=== PATIENT | female | born 1950 | race Hispanic/Latino ===

== ENCOUNTER 2018-07-02 22:34 | Emergency (ER) | payer OTHER ==
[~2018-07-02] VITALS: Ht 157.5 cm; Wt 104.3 kg
--- OUTSIDE RECORDS SUMMARY | 2018-07-02 22:37 | XMS REPORT | Continuity of Care Document ---
Author Author [facility] Organization [facility] Address Unknown Phone Unavailable Care Team Providers Care House Wirer Helper Name Role Phone MD Keila, Maximo TRAN Unavailable Insurance Providers Payer name Policy type / Coverage type Policy ID Covered alliance party ID Policy [employer] [place] [id number] Quarterly [place] ACS - TMHP - TRADITIONAL Encounters Encounter Performer Location Date Lab Report Maximo Pedraza MD [facility] Jan 11, 2014 Allergies, Adverse Reactions, Alerts Type Substance Reaction Status Drug allergy CODEINE nausea Active Problems Problem Effective Dates Problem Status BODY MASS INDEX 50.0-59.9, ADULT Oct 06, 2013 Active DM W/RENAL MANIFEST, TYPE II Oct 06, 2013 Active BACK PAIN, CHRONIC Oct 06, 2013 Active HYPERTENSION Oct 06, 2013 Active HYPERLIPIDEMIA, MIXED Oct 06, 2013 Active DIARRHEA, CHRONIC Oct 06, 2013 Active MORBID OBESITY Oct 06, 2013 Active CHRONIC KIDNEY DISEASE, STAGE III (MODERATE) Oct 06, 2013 Active URINARY TRACT INFECTION, SITE NOT SPECIFIED Oct 06, 2013 Active Procedures Date Description Comments Oct 06, 2013 smoking status Former smoker Jan 11, 2014 smoking status Former smoker Medications Medication Instructions Start Date Status PRAVASTATIN SODIUM 10 MG TABS take 1 tablet by mouth at bedtime Oct 06, 2013 Active HYDROCHLOROTHIAZIDE 25 MG TABS take 1 tablet by mouth daily Oct 06, 2013 Active LOSARTAN POTASSIUM 100 MG TABS take 1 tablet by mouth daily Oct 06, 2013 Active ALL DAY ALLERGY 10 MG TABS take 1 tablet by mouth daily Oct 06, 2013 Active ATENOLOL 25 MG TABS take 1 tablet by mouth daily Oct 06, 2013 Active METHOCARBAMOL 500 MG TABS take 1 tablet by mouth three times daily Oct 06, 2013 Active FLUTICASONE PROPIONATE 50 MCG/ACT SUSP use 2 sprays each nostril daily Oct 06, 2013 Active CEPHALEXIN 500 MG CAPS take one tablet by mouth three times a day Oct 06, 2013 Inactive LANSOPRAZOLE 30 MG CPDR take one tablet by mouth daily Jan 11, 2014 Active HUMULIN 70/30 (70-30) 100 UNIT/ML SUSP inject 65 units under the skin in the morning and inject 65 units under the skin at bedtime Oct 06, 2013 Active BD INSULIN SYRINGE 28G X 1/2" 1 ML MISC use 2 times a day Jan 11, 2014 Active Vital Signs Date Description Test Result Oct 06, 2013 height E&M - 8302-2 HEIGHT 62 in Oct 06, 2013 respiratory rate E&M - 9279-1 RESP RATE 12 /min Oct 06, 2013 temperature E&M TEMPERATURE 98.9 deg f Oct 06, 2013 pulse rate E&M - 8867-4 PULSE RATE 62 /min Oct 06, 2013 blood pressure, systolic - 8480-6 BP SYSTOLIC 135 mm Hg Oct 06, 2013 blood pressure, diastolic - 8462-4 BP DIASTOLIC 63 mm Hg Oct 06, 2013 weight E&M - 3141-9 WEIGHT 297.2 lb Jan 11, 2014 height E&M - 8302-2 HEIGHT 62 in Jan 11, 2014 weight E&M - 3141-9 WEIGHT 299 lb Jan 11, 2014 respiratory rate E&M - 9279-1 RESP RATE 12 /min Jan 11, 2014 temperature E&M TEMPERATURE 97.6 deg f Jan 11, 2014 pulse rate E&M - 8867-4 PULSE RATE 62 /min Jan 11, 2014 blood pressure, systolic - 8480-6 BP SYSTOLIC 155 mm Hg Jan 11, 2014 blood pressure, diastolic - 8462-4 BP DIASTOLIC 70 mm Hg Results Date Description Test Name Value Reference Interpretation Status Jan 11, 2014 hemoglobin A1C, blood, as % of total hemoglobin HGBA1C 8.3 % <=5.6 High Jan 11, 2014 sodium, serum SODIUM 137 MEQ/L mmol/L 135-145 Jan 11, 2014 potassium, serum POTASSIUM 4.8 MEQ/L mmol/L 3.5-5.1 Jan 11, 2014 creatinine, serum CREATININE 1.2 mg/dL 0.5-1.4 Jan 11, 2014 urea nitrogen, blood BUN 26 mg/dL 7-22 High Jan 11, 2014 urea nitrogen/creatinine ratio, serum BUN/CREAT 22 null 6-25 Jan 11, 2014 albumin, serum ALBUMIN 3.6 g/dL 3.5-5.0 Jan 11, 2014 calcium, serum CALCIUM 9.4 mg/dL 8.5-10.5 Jan 11, 2014 alanine aminotransferase (SGPT), serum SGPT (ALT) 23 U/L 0-65 Jan 11, 2014 aspartate aminotransferase (SGOT), serum SGOT (AST) 14 U/L 0-37 Jan 11, 2014 alkaline phosphatase, serum ALK PHOS 56 U/L 39-136
--- OUTSIDE RECORDS SUMMARY | 2018-07-02 22:37 | XMS REPORT | Continuity of Care Document ---
Author Author [facility] Organization [facility] Address Unknown Phone Unavailable Care Team Providers Care News Reel Cameraman Name Role Phone MD Keila, Maximo TRAN Unavailable Insurance Providers Payer name Policy type / Coverage type Policy ID Covered republican ID Policy [employer] [place] [employer] [place] - TMHP - TRADITIONAL Encounters Encounter Performer Location Date Lab Report Maximo Pedraza MD [facility] Nov 12, 2013 Allergies, Adverse Reactions, Alerts Type Substance Reaction [...] Oct 06, 2013 smoking status Former smoker Medications Medication Instructions [...] each nostril daily Oct 06, 2013 Active HUMULIN 70/30 (70-30) 100 UNIT/ML SUSP inject 55 units under the skin in the morning and inject 60 units under the skin at bedtime Oct 06, 2013 Active CEPHALEXIN 500 MG CAPS take one tablet by mouth three times a day Oct 06, 2013 Active Vital Signs Date Description Test Result Oct 06, 2013 height E&M HEIGHT 62 in Oct 06, 2013 respiratory rate E&M RESP RATE 12 /min Oct 06, 2013 temperature E&M TEMPERATURE 98.9 deg f Oct 06, 2013 pulse rate E&M PULSE RATE 62 /min Oct 06, 2013 blood pressure, systolic BP SYSTOLIC 135 mm Hg Oct 06, 2013 blood pressure, diastolic BP DIASTOLIC 63 mm Hg Oct 06, 2013 weight E&M WEIGHT 297.2 lb
--- OUTSIDE RECORDS SUMMARY | 2018-07-02 22:37 | XMS REPORT | Continuity of Care Document ---
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 Active 03/30/2014 Condition 10/11/2014 [facility] LOWER LIMB AMPUTATION, OTHER TOE Active 03/30/2014 Condition 10/11/2014 [facility] PVD Active 03/30/2014 Condition 10/11/2014 [facility] BODY MASS INDEX 50.0-59.9, ADULT Active 10/06/2013 Condition 10/11/2014 [facility] DM W/RENAL MANIFEST, TYPE II Active 10/06/2013 Condition 10/11/2014 [facility] BACK PAIN, CHRONIC Active 10/06/2013 Condition 10/11/2014 [facility] HYPERTENSION Active 10/06/2013 Condition 10/11/2014 [facility] HYPERLIPIDEMIA, MIXED Active 10/06/2013 Condition 10/11/2014 [facility] DIARRHEA, CHRONIC Active 10/06/2013 Condition 10/11/2014 [facility] MORBID OBESITY Active 10/06/2013 Condition 10/11/2014 [facility] CHRONIC KIDNEY DISEASE, STAGE III Active 10/06/2013 Condition 03/30/2014 [facility] URINARY TRACT INFECTION, SITE NOT SPECIFIED Inactive 10/06/2013 Condition 10/11/2014 [facility] KIDNEY DISEASE, CHRONIC, STAGE III Active 10/06/2013 Condition 10/11/2014 [facility] Medications Medication Details Route Status Patient Instructions Ordering Provider Order Date Source FUROSEMIDE 20 MG TABS take 1 tablet by mouth daily Active 07/12/2014 [facility] OMEPRAZOLE 40 MG CPDR take 1 capsule by mouth daily 30 minutes before breakfast Active 07/12/2014 [facility] PROAIR HFA 108 (90 BASE) MCG/ACT AERS inhale 1 puff by mouth twice daily as needed Active 04/26/2014 [facility] AZITHROMYCIN 250 MG TABS take 2 tabs first day, then 1 tab daily No Longer Active 04/26/2014 [facility] LANSOPRAZOLE 30 MG CPDR take one tablet by mouth daily Active 01/11/2014 [facility] BD INSULIN SYRINGE 28G X 1/2" 1 ML MISC use 2 times a day Active 01/11/2014 [facility] BD INSULIN SYRINGE ULTRAFINE 31G X 5/16" 1 ML MISC use 2 times a day Active 01/11/2014 [facility] PRAVASTATIN SODIUM 10 MG TABS take 1 tablet by mouth at bedtime Active 10/06/2013 [facility] HYDROCHLOROTHIAZIDE 25 MG TABS take 1 tablet by mouth daily Active 10/06/2013 [facility] LOSARTAN POTASSIUM 100 MG TABS take 1 tablet by mouth daily Active 10/06/2013 [facility] ALL DAY ALLERGY 10 MG TABS take 1 tablet by mouth daily Active 10/06/2013 [facility] ATENOLOL 25 MG TABS take 1 tablet by mouth daily Active 10/06/2013 [facility] METHOCARBAMOL 500 MG TABS take 1 tablet by mouth three times daily Active 10/06/2013 [facility] FLUTICASONE PROPIONATE 50 MCG/ACT SUSP use 2 sprays each nostril daily Active 10/06/2013 [facility] HUMULIN 70/30 (70-30) 100 UNIT/ML SUSP inject 60 units under the skin in the morning and inject 60 units under the skin at bedtime Active 10/06/2013 [facility] CEPHALEXIN 500 MG CAPS take one tablet by mouth three times a day Active 10/06/2013 [facility] LOSARTAN POTASSIUM 100 MG TABS take 1 tablet by mouth daily Active 10/06/2013 [facility] METHOCARBAMOL 500 MG TABS take 1 tablet by mouth three times daily Active 10/06/2013 [facility] CEPHALEXIN 500 MG CAPS take one tablet by mouth three times a day No Longer Active 10/06/2013 [facility] HUMULIN 70/30 (70-30) 100 UNIT/ML SUSP inject 65 units under the skin in the morning and inject 65 units under the skin at bedtime Active 10/06/2013 [facility] ATENOLOL 25 MG TABS take 1 tablet by mouth daily Active 10/06/2013 [facility] METHOCARBAMOL 500 MG TABS take 1 tablet by mouth three times daily Active 10/06/2013 [facility] FLUTICASONE PROPIONATE 50 MCG/ACT SUSP use 2 sprays each nostril daily Active 10/06/2013 [facility] CEPHALEXIN 500 MG CAPS take one tablet by mouth three times a day No Longer Active 10/06/2013 [facility] ATENOLOL 25 MG TABS take 1 tablet by mouth daily Active 10/06/2013 [facility] Allergies, Adverse Reactions, Alerts Substance Category Reaction Severity Reaction type Status Date Reported Comments Source CODEINE Drug allergy CODEINE 10/06/2013 [facility] Immunizations Immunization Date Given Site Status Last Updated Comments Source Results Order Name Results Value Reference Range Date Interpretation Comments Source Chemistry HGBA1C 9.4 % - 5.6 07/12/2014 [facility] Chemistry TSH 1.680 uIU/mL 0.360 - 3.740 07/12/2014 [facility] CHOLESTEROL 163 mg/dl - 199 07/12/2014 [facility] TRIGLYCERIDE 187 mg/dl - 149 07/12/2014 [facility] Chemistry HDL 43 mg/dl >=61 07/12/2014 [facility] Chemistry LDL 83 mg/dl - 99 07/12/2014 [facility] Chemistry SODIUM 134 MEQ/L mmol/L 135 - 145 07/12/2014 [facility] Chemistry POTASSIUM 4.1 MEQ/L mmol/L 3.5 - 5.1 07/12/2014 [facility] Chemistry CREATININE 1.6 mg/dL 0.5 - 1.4 07/12/2014 [facility] Chemistry BUN 37 mg/dL 7 - 22 07/12/2014 [facility] Chemistry BUN/CREAT 23 6 - 25 07/12/2014 [facility] Chemistry ALBUMIN 3.5 g/dL 3.5 - 5.0 07/12/2014 [facility] Chemistry CALCIUM 9.5 mg/dL 8.5 - 10.5 07/12/2014 [facility] Chemistry SGPT (ALT) 25 U/L 0 - 65 07/12/2014 [facility] Chemistry SGOT (AST) 17 U/L 0 - 37 07/12/2014 [facility] Chemistry ALK PHOS 50 U/L 39 - 136 07/12/2014 [facility] Chemistry HGBA1C 8.8 % - 5.6 04/26/2014 [facility] Chemistry SODIUM 139 MEQ/L mmol/L 135 - 145 04/26/2014 [facility] Chemistry POTASSIUM 4.5 MEQ/L mmol/L 3.5 - 5.1 04/26/2014 [facility] Chemistry CREATININE 1.1 mg/dL 0.5 - 1.4 04/26/2014 [facility] Chemistry BUN 17 mg/dL 7 - 22 04/26/2014 [facility] Chemistry BUN/CREAT 15 6 - 25 04/26/2014 [facility] Chemistry ALBUMIN 3.7 g/dL 3.5 - 5.0 04/26/2014 [facility] Chemistry CALCIUM 9.1 mg/dL 8.5 - 10.5 04/26/2014 [facility] Chemistry SGPT (ALT) 22 U/L 0 - 65 04/26/2014 [facility] Chemistry SGOT (AST) 15 U/L 0 - 37 04/26/2014 [facility] Chemistry ALK PHOS 48 U/L 39 - 136 04/26/2014 [facility] Chemistry HGBA1C 8.8 % - 5.6 04/26/2014 [facility] Chemistry SODIUM 139 MEQ/L mmol/L 135 - 145 04/26/2014 [facility] Chemistry POTASSIUM 4.5 MEQ/L mmol/L 3.5 - 5.1 04/26/2014 [facility] Chemistry CREATININE 1.1 mg/dL 0.5 - 1.4 04/26/2014 [facility] Chemistry BUN 17 mg/dL 7 - 22 04/26/2014 [facility] Chemistry BUN/CREAT 15 6 - 25 04/26/2014 [facility] Chemistry ALBUMIN 3.7 g/dL 3.5 - 5.0 04/26/2014 [facility] Chemistry CALCIUM 9.1 mg/dL 8.5 - 10.5 04/26/2014 [facility] Chemistry SGPT (ALT) 22 U/L 0 - 65 04/26/2014 [facility] Chemistry SGOT (AST) 15 U/L 0 - 37 04/26/2014 [facility] Chemistry ALK PHOS 48 U/L 39 - 136 04/26/2014 [facility] Chemistry HGBA1C 8.3 % - 5.6 01/11/2014 [facility] Chemistry SODIUM 137 MEQ/L mmol/L 135 - 145 01/11/2014 [facility] Chemistry POTASSIUM 4.8 MEQ/L mmol/L 3.5 - 5.1 01/11/2014 [facility] Chemistry CREATININE 1.2 mg/dL 0.5 - 1.4 01/11/2014 [facility] Chemistry BUN 26 mg/dL 7 - 22 01/11/2014 [facility] Chemistry BUN/CREAT 22 6 - 25 01/11/2014 [facility] Chemistry ALBUMIN 3.6 g/dL 3.5 - 5.0 01/11/2014 [facility] Chemistry CALCIUM 9.4 mg/dL 8.5 - 10.5 01/11/2014 [facility] Chemistry SGPT (ALT) 23 U/L 0 - 65 01/11/2014 [facility] Chemistry SGOT (AST) 14 U/L 0 - 37 01/11/2014 [facility] Chemistry ALK PHOS 56 U/L 39 - 136 01/11/2014 [facility] Chemistry HGBA1C 8.3 % - 5.6 01/11/2014 [facility] Chemistry SODIUM 137 MEQ/L mmol/L 135 - 145 01/11/2014 [facility] Chemistry POTASSIUM 4.8 MEQ/L mmol/L 3.5 - 5.1 01/11/2014 [facility] Chemistry CREATININE 1.2 mg/dL 0.5 - 1.4 01/11/2014 [facility] Chemistry BUN 26 mg/dL 7 - 22 01/11/2014 [facility] Chemistry BUN/CREAT 22 6 - 25 01/11/2014 [facility] Chemistry ALBUMIN 3.6 g/dL 3.5 - 5.0 01/11/2014 [facility] Chemistry CALCIUM 9.4 mg/dL 8.5 - 10.5 01/11/2014 [facility] Chemistry SGPT (ALT) 23 U/L 0 - 65 01/11/2014 [facility] Chemistry SGOT (AST) 14 U/L 0 - 37 01/11/2014 [facility] Chemistry ALK PHOS 56 U/L 39 - 136 01/11/2014 [facility] Vital Signs Vital Sign Value Date Comments Source Weight 297 10/11/2014 [facility] Height 62 10/11/2014 [facility] Respitory Rate 12 10/11/2014 [facility] Temperature Oral (F) 98.3 F 10/11/2014 [facility] Systolic (mm Hg) 148 10/11/2014 [facility] Diastolic (mm Hg) 67 10/11/2014 [facility] Heart Rate 58 10/11/2014 [facility] Height 62 07/12/2014 [facility] Weight 298.38 07/12/2014 [facility] Respitory Rate 12 07/12/2014 [facility] Temperature Oral (F) 97.0 F 07/12/2014 [facility] Heart Rate 59 07/12/2014 [facility] Systolic (mm Hg) 127 07/12/2014 [facility] Diastolic (mm Hg) 60 07/12/2014 [facility] Height 62 04/26/2014 [facility] Weight 303.13 04/26/2014 [facility] Respitory Rate 12 04/26/2014 [facility] Temperature Oral (F) 98.5 F 04/26/2014 [facility] Heart Rate 63 04/26/2014 [facility] Systolic (mm Hg) 185 04/26/2014 [facility] Diastolic (mm Hg) 66 04/26/2014 [facility] Height 62 03/30/2014 [facility] Weight 300.13 03/30/2014 [facility] Respitory Rate 12 03/30/2014 [facility] Temperature Oral (F) 98.0 F 03/30/2014 [facility] Heart Rate 60 03/30/2014 [facility] Systolic (mm Hg) 149 03/30/2014 [facility] Diastolic (mm Hg) 73 03/30/2014 [facility] Height 62 03/11/2014 [facility] Weight 301.13 03/11/2014 [facility] Respitory Rate 12 03/11/2014 [facility] Temperature Oral (F) 97.7 F 03/11/2014 [facility] Heart Rate 64 03/11/2014 [facility] Systolic (mm Hg) 161 03/11/2014 [facility] Diastolic (mm Hg) 72 03/11/2014 [facility] Height 62 01/11/2014 [facility] Weight 299 01/11/2014 [facility] Respitory Rate 12 01/11/2014 [facility] Temperature Oral (F) 97.6 F 01/11/2014 [facility] Heart Rate 62 01/11/2014 [facility] Systolic (mm Hg) 155 01/11/2014 [facility] Diastolic (mm Hg) 70 01/11/2014 [facility] Height 62 10/06/2013 [facility] Respitory Rate 12 10/06/2013 [facility] Temperature Oral (F) 98.9 F 10/06/2013 [facility] Heart Rate 62 10/06/2013 [facility] Systolic (mm Hg) 135 10/06/2013 [facility] Diastolic (mm Hg) 63 10/06/2013 [facility] Weight 297.2 10/06/2013 [facility] Encounters Location Location Details Encounter Type Encounter Number Reason For Visit Attending Provider ADM Date DC Date Status Source [facility] Office Visit [id number] Maximo Pedraza MD 10/06/2013 10/06/2013 [facility] Lab Report [id number] Maximo Pedraza MD 10/06/2013 10/06/2013 [facility] Lab Report [id number] Maximo Pedraza MD 11/12/2013 11/12/2013 [facility] Office Visit [id number] Maximo Pedraza MD 01/11/2014 01/11/2014 [facility] Lab Report [id number] Maximo Pedraza MD 01/11/2014 01/11/2014 [facility] Office Visit [id number] Maximo Pedraza MD 03/11/2014 03/11/2014 [facility] Office Visit [id number] Maximo Pedraza MD 03/30/2014 03/30/2014 [facility] Office Visit [id number] Maximo Pedraza MD 07/12/2014 07/12/2014 [facility] Lab Report [id number] Maximo Pedraza MD 07/12/2014 07/12/2014 [facility] Office Visit [id number] Maximo Pedraza MD 10/11/2014 10/11/2014 [facility] Procedures Procedure Code Date Perfomer Comments Source mammogram [id number] 07/28/2013 done per pataient [facility] colonoscopy [id number] 09/28/2011 done per patient [facility]
--- OUTSIDE RECORDS SUMMARY | 2018-07-02 22:37 | XMS REPORT | Continuity of Care Document ---
Author Author [facility] Organization [facility] Address Unknown Phone Unavailable Care Team Providers Care Gas Load Dispatcher Name Role Phone MD Keila, Maximo TRAN Unavailable Insurance Providers Payer name Policy type / Coverage type Policy ID Covered green party ID Policy [employer]yson [place] [employer] [place] [facility] Encounters Encounter Performer Location Date Office Visit Maximo Pedraza MD [facility] Oct 11, 2014 Allergies, Adverse Reactions, Alerts Type [...] Active MORBID OBESITY Oct 06, 2013 Active KIDNEY DISEASE, CHRONIC, STAGE III Oct 06, 2013 Active URINARY TRACT INFECTION, SITE NOT SPECIFIED Oct 06, 2013 Inactive OTHER ACQUIRED DEFORMITY OF ANKLE AND FOOT OTHER Mar 30, 2014 Active LOWER LIMB AMPUTATION, OTHER TOE(S) Mar 30, 2014 Active PVD Mar 30, 2014 Active BRONCHITIS, ACUTE Apr 26, 2014 Inactive LARYNGITIS, ACUTE Jul 12, 2014 Inactive Procedures Date Description Comments Oct 06, 2013 smoking status Former smoker Jan 11, 2014 smoking status Former smoker Mar 11, 2014 smoking status Former smoker Mar 30, 2014 smoking status Former smoker Apr 26, 2014 smoking status Former smoker Jul 12, 2014 smoking status Former smoker Jul 28, 2013 mammogram done per pataient Sep 28, 2011 colonoscopy done per patient Oct 11, 2014 smoking status Former smoker Medications [...] by mouth daily Jan 11, 2014 Active BD INSULIN SYRINGE ULTRAFINE 31G X 5/16" 1 ML MISC use 2 times a day Jan 11, 2014 Active PROAIR HFA 108 (90 BASE) MCG/ACT AERS inhale 1 puff by mouth twice daily as needed Apr 26, 2014 Active AZITHROMYCIN 250 MG TABS take 2 tabs first day, then 1 tab daily Apr 26, 2014 Inactive FUROSEMIDE 20 MG TABS take 1 tablet by mouth daily Jul 12, 2014 Active OMEPRAZOLE 40 MG CPDR take 1 capsule by mouth daily 30 minutes before breakfast Jul 12, 2014 Active HUMULIN 70/30 (70-30) 100 UNIT/ML SUSP inject 60 units under the skin in the morning and inject 60 units under the skin at bedtime Oct 06, 2013 Active Vital Signs Date [...] - 8462-4 BP DIASTOLIC 70 mm Hg Mar 11, 2014 height E&M - 8302-2 HEIGHT 62 in Mar 11, 2014 weight E&M - 3141-9 WEIGHT 301.13 lb Mar 11, 2014 respiratory rate E&M - 9279-1 RESP RATE 12 /min Mar 11, 2014 temperature E&M TEMPERATURE 97.7 deg f Mar 11, 2014 pulse rate E&M - 8867-4 PULSE RATE 64 /min Mar 11, 2014 blood pressure, systolic - 8480-6 BP SYSTOLIC 161 mm Hg Mar 11, 2014 blood pressure, diastolic - 8462-4 BP DIASTOLIC 72 mm Hg Mar 30, 2014 height E&M - 8302-2 HEIGHT 62 in Mar 30, 2014 weight E&M - 3141-9 WEIGHT 300.13 lb Mar 30, 2014 respiratory rate E&M - 9279-1 RESP RATE 12 /min Mar 30, 2014 temperature E&M TEMPERATURE 98.0 deg f Mar 30, 2014 pulse rate E&M - 8867-4 PULSE RATE 60 /min Mar 30, 2014 blood pressure, systolic - 8480-6 BP SYSTOLIC 149 mm Hg Mar 30, 2014 blood pressure, diastolic - 8462-4 BP DIASTOLIC 73 mm Hg Apr 26, 2014 height E&M - 8302-2 HEIGHT 62 in Apr 26, 2014 weight E&M - 3141-9 WEIGHT 303.13 lb Apr 26, 2014 respiratory rate E&M - 9279-1 RESP RATE 12 /min Apr 26, 2014 temperature E&M TEMPERATURE 98.5 deg f Apr 26, 2014 pulse rate E&M - 8867-4 PULSE RATE 63 /min Apr 26, 2014 blood pressure, systolic - 8480-6 BP SYSTOLIC 185 mm Hg Apr 26, 2014 blood pressure, diastolic - 8462-4 BP DIASTOLIC 66 mm Hg Apr 26, 2014 pulse rate, standing PULSE STAND 98 /min Jul 12, 2014 height E&M - 8302-2 HEIGHT 62 in Jul 12, 2014 weight E&M - 3141-9 WEIGHT 298.38 lb Jul 12, 2014 respiratory rate E&M - 9279-1 RESP RATE 12 /min Jul 12, 2014 temperature E&M TEMPERATURE 97.0 deg f Jul 12, 2014 pulse rate E&M - 8867-4 PULSE RATE 59 /min Jul 12, 2014 blood pressure, systolic - 8480-6 BP SYSTOLIC 127 mm Hg Jul 12, 2014 blood pressure, diastolic - 8462-4 BP DIASTOLIC 60 mm Hg Oct 11, 2014 weight E&M - 3141-9 WEIGHT 297 lb Oct 11, 2014 height E&M - 8302-2 HEIGHT 62 in Oct 11, 2014 respiratory rate E&M - 9279-1 RESP RATE 12 /min Oct 11, 2014 temperature E&M TEMPERATURE 98.3 deg f Oct 11, 2014 blood pressure, systolic - 8480-6 BP SYSTOLIC 148 mm Hg Oct 11, 2014 blood pressure, diastolic - 8462-4 BP DIASTOLIC 67 mm Hg Oct 11, 2014 pulse rate E&M - 8867-4 PULSE RATE 58 /min Results Date Description Test Name Value Reference Interpretation Status Apr 26, 2014 hemoglobin A1C, blood, as % of total hemoglobin HGBA1C 8.8 % <=5.6 High Apr 26, 2014 sodium, serum SODIUM 139 MEQ/L mmol/L 135-145 Apr 26, 2014 potassium, serum POTASSIUM 4.5 MEQ/L mmol/L 3.5-5.1 Apr 26, 2014 creatinine, serum CREATININE 1.1 mg/dL 0.5-1.4 Apr 26, 2014 urea nitrogen, blood BUN 17 mg/dL -Apr 26, 2014 urea nitrogen/creatinine ratio, serum BUN/CREAT 15 null 6-25 Apr 26, 2014 albumin, serum ALBUMIN 3.7 g/dL 3.5-5.0 Apr 26, 2014 calcium, serum CALCIUM 9.1 mg/dL 8.5-10.5 Apr 26, 2014 alanine aminotransferase (SGPT), serum SGPT (ALT) 22 U/L 0-65 Apr 26, 2014 aspartate aminotransferase (SGOT), serum SGOT (AST) 15 U/L 0-37 Apr 26, 2014 alkaline phosphatase, serum ALK PHOS 48 U/L 39-136 Jan 11, 2014 hemoglobin A1C, blood, as [...] phosphatase, serum ALK PHOS 56 U/L 39-136 Apr 26, 2014 hemoglobin A1C, blood, as % of total hemoglobin HGBA1C 8.8 % <=5.6 High Apr 26, 2014 sodium, serum SODIUM 139 MEQ/L mmol/L 135-145 Apr 26, 2014 potassium, serum POTASSIUM 4.5 MEQ/L mmol/L 3.5-5.1 Apr 26, 2014 creatinine, serum CREATININE 1.1 mg/dL 0.5-1.4 Apr 26, 2014 urea nitrogen, blood BUN 17 mg/dL 7-Apr 26, 2014 urea nitrogen/creatinine ratio, serum BUN/CREAT 15 null 6-25 Apr 26, 2014 albumin, serum ALBUMIN 3.7 g/dL 3.5-5.0 Apr 26, 2014 calcium, serum CALCIUM 9.1 mg/dL 8.5-10.5 Apr 26, 2014 alanine aminotransferase (SGPT), serum SGPT (ALT) 22 U/L 0-65 Apr 26, 2014 aspartate aminotransferase (SGOT), serum SGOT (AST) 15 U/L 0-37 Apr 26, 2014 alkaline phosphatase, serum ALK PHOS 48 U/L 39-136 Jul 12, 2014 hemoglobin A1C, blood, as % of total hemoglobin HGBA1C 9.4 % <=5.6 High Jul 12, 2014 thyroid stimulating hormone, serum TSH 1.680 uIU/mL 0.360-3.740 Jul 12, 2014 cholesterol, serum CHOLESTEROL 163 mg/dl <=199 Jul 12, 2014 triglyceride, serum, fasting TRIGLYCERIDE 187 mg/dl <=149 High Jul 12, 2014 HDL cholesterol, serum HDL 43 mg/dl >=61 Low Jul 12, 2014 LDL cholesterol, serum LDL 83 mg/dl <=99 Jul 12, 2014 sodium, serum SODIUM 134 MEQ/L mmol/L 135-145 Low Jul 12, 2014 potassium, serum POTASSIUM 4.1 MEQ/L mmol/L 3.5-5.1 Jul 12, 2014 creatinine, serum CREATININE 1.6 mg/dL 0.5-1.4 High Jul 12, 2014 urea nitrogen, blood BUN 37 mg/dL 7-22 High Jul 12, 2014 urea nitrogen/creatinine ratio, serum BUN/CREAT 23 null 6-25 Jul 12, 2014 albumin, serum ALBUMIN 3.5 g/dL 3.5-5.0 Jul 12, 2014 calcium, serum CALCIUM 9.5 mg/dL 8.5-10.5 Jul 12, 2014 alanine aminotransferase (SGPT), serum SGPT (ALT) 25 U/L 0-65 Jul 12, 2014 aspartate aminotransferase (SGOT), serum SGOT (AST) 17 U/L 0-37 Jul 12, 2014 alkaline phosphatase, serum ALK PHOS 50 U/L 39-136
--- OUTSIDE RECORDS SUMMARY | 2018-07-02 22:37 | XMS REPORT | Continuity of Care Document ---
Author Author [facility] Organization [facility] Address Unknown Phone Unavailable Care Team Providers Care Rectangular Tank Cooper Name Role Phone MD Keila, Maximo TRAN Unavailable Insurance Providers Payer name Policy type / Coverage type Policy ID Covered constitution party ID Policy [employer]yson [place] [employer] [place] ACS - TMHP - TRADITIONAL Encounters Encounter Performer Location Date Office Visit Maximo Pedraza MD [facility] Mar 30, 2014 Allergies, Adverse Reactions, Alerts Type Substance [...] 2014 Active PVD Mar 30, 2014 Active Procedures Date Description Comments Oct 06, 2013 smoking status Former smoker Jan 11, 2014 smoking status Former smoker Mar 11, 2014 smoking status Former smoker Mar 30, 2014 smoking status Former smoker Medications Medication [...] Oct 06, 2013 Active BD INSULIN SYRINGE ULTRAFINE 31G X [...] - 8462-4 BP DIASTOLIC 73 mm Hg Results Date Description Test Name [...]
--- OUTSIDE RECORDS SUMMARY | 2018-07-02 22:37 | XMS REPORT | Continuity of Care Document ---
Author Author [facility] Organization [facility] Address Unknown Phone Unavailable Care Team Providers Care Metal Technician Name Role Phone MD Keila, Maximo TRAN Unavailable Insurance Providers Payer name Policy type / Coverage type Policy ID Covered green party ID Policy [employer] [place] [employer] [place] ACS - TMHP - TRADITIONAL Encounters Encounter Performer Location Date Office Visit Maximo Pedraza MD [facility] Mar 11, 2014 Allergies, Adverse Reactions, Alerts Type [...] SITE NOT SPECIFIED Oct 06, 2013 Inactive Procedures Date Description Comments Oct 06, 2013 smoking status Former smoker Jan 11, 2014 smoking status Former smoker Mar 11, 2014 smoking status Former smoker Medications [...] - 8462-4 BP DIASTOLIC 72 mm Hg Results Date Description Test Name [...]
--- OUTSIDE RECORDS SUMMARY | 2018-07-02 22:37 | XMS REPORT | Continuity of Care Document ---
Author Author [facility] Organization [facility] Address Unknown Phone Unavailable Care Team Providers Care Tattoo Artist Name Role Phone MD Keila, Maximo TRAN Unavailable Insurance Providers Payer name Policy type / Coverage type Policy ID Covered libertarian ID Policy [employer]yson [place] [employer] [place] ACS - TMHP - TRADITIONAL Encounters Encounter Performer Location Date Office Visit Maximo Pedraza MD [facility] Jul 12, 2014 Allergies, Adverse Reactions, Alerts Type Substance [...] 2014 Inactive LARYNGITIS, ACUTE Jul 12, 2014 Active Procedures Date Description Comments Oct 06, 2013 smoking status Former smoker Jan 11, 2014 smoking status Former smoker Mar 11, 2014 smoking status Former smoker Mar 30, 2014 smoking status Former smoker Apr 26, 2014 smoking status Former smoker Jul 12, 2014 smoking status Former smoker Jul 28, 2013 mammogram done per pataient Sep 28, 2011 colonoscopy done per patient Medications Medication Instructions Start Date Status PRAVASTATIN [...] minutes before breakfast Jul 12, 2014 Active Vital Signs Date Description Test [...] - 8462-4 BP DIASTOLIC 60 mm Hg Results Date Description Test Name [...] 2014 urea nitrogen, blood BUN 17 mg/dL 7-22 Apr 26, 2014 urea nitrogen/creatinine ratio, serum BUN/CREAT [...] of total hemoglobin HGBA1C 8.8 % <=5.6 [facility] Apr 26, 2014 sodium, serum SODIUM 139 [...]
--- OUTSIDE RECORDS SUMMARY | 2018-07-02 22:37 | XMS REPORT | Continuity of Care Document ---
Author Author [facility] Organization [facility] Address Unknown Phone Unavailable Care Team Providers Care Tag Writer Name Role Phone MD Keila, Maximo TRAN Unavailable Insurance Providers Payer name Policy type / Coverage type Policy ID Covered democrat ID Policy Dyson [place] [employer] [place] ACS - TMHP - TRADITIONAL Encounters Encounter Performer Location Date Lab Report Maximo Pedraza MD [facility] Jul 12, 2014 [...] of total hemoglobin HGBA1C 8.8 % <=5.6 [facility] Apr 26, 2014 sodium, serum [...]
--- OUTSIDE RECORDS SUMMARY | 2018-07-02 22:37 | XMS REPORT | Continuity of Care Document ---
Author Author [facility] Organization [facility] Address Unknown Phone Unavailable Care Team Providers Care Garde Manager Name Role Phone MD Keila, Maximo TRAN Unavailable Insurance Providers Payer name Policy type / Coverage type Policy ID Covered libertarian ID Policy [employer] [place] [employer] [place] ACS - TMHP - TRADITIONAL Encounters Encounter Performer Location Date Office Visit Maximo Pedraza MD [facility] Jan 11, 2014 Allergies, [...]
--- OUTSIDE RECORDS SUMMARY | 2018-07-02 22:37 | XMS REPORT | Continuity of Care Document ---
Author Author [facility] Organization [facility] Address Unknown Phone Unavailable Care Team Providers Care Foreign Exchange Clerk Name Role Phone MD Keila, Maximo TRAN Unavailable Insurance Providers Payer name Policy type / Coverage type Policy ID Covered alliance party ID Policy [employer]yson [place] [employer] [place] ACS - TMHP - TRADITIONAL Encounters Encounter Performer Location Date Lab Report Maximo Pedraza MD [facility] Oct 06, 2013 Allergies, Adverse Reactions, Alerts Type Substance [...]
--- OUTSIDE RECORDS SUMMARY | 2018-07-02 22:37 | XMS REPORT | Continuity of Care Document ---
Author Author [facility] Organization [facility] Address Unknown Phone Unavailable Care Team Providers Care Grab Operator Name Role Phone MD Keila, Maximo TRAN Unavailable Insurance Providers Payer name Policy type / Coverage type Policy ID Covered constitution party ID Policy [employer] [place] [id number] [place] ACS - TMHP - TRADITIONAL Encounters Encounter Performer Location Date Office Visit Maximo Pedraza MD [facility] Oct 06, [...]
[2018-07-02] MEDS ORDERED: DIATRIZOATE MEGL/DIATRIZOA SOD 30 ML BTL PO ONE (23:37)
[2018-07-03 00:31] LABS: BASOPHILS % 0.3 % (0.0-1.0); EOSINOPHILS # (AUTO) 0.4 (0.0-0.4); EOSINOPHILS % 3.2 % (0.0-6.0); HEMATOCRIT 37.4 % (34.2-44.1); HEMOGLOBIN 12.1 g/dL (12.0-16.0); LYMPHOCYTES # (AUTO) 2.4 (1.0-3.2); LYMPHOCYTES % 18.4 % (18.0-39.1); MEAN CORPUSCULAR HEMOGLOBIN 29.4 pg (28-32); MEAN CORPUSCULAR HGB CONC 32.4 g/dL (31-35); MONOCYTES # (AUTO) 0.8 (0.2-0.8); MONOCYTES % 5.9 % (4.4-11.3); NEUTROPHILS # (AUTO) 9.1 (2.1-6.9); NEUTROPHILS % 71.6 % (38.7-80.0); PLATELET COUNT 291 x10e3/uL (140-360); RED BLOOD COUNT 4.11 x10e6/uL (3.6-5.1); RED CELL DISTRIBUTION WIDTH 14.8 % (11.7-14.4)
[2018-07-03 00:45] LABS: ALBUMIN 3.1 g/dL (3.5-5.0); ALBUMIN/GLOBULIN RATIO 0.9 (0.8-2.0); ANION GAP 12.1 mmol/L (8-16); CREATININE, SERUM 1.08 mg/dL (0.57-1.11); POTASSIUM 4.1 mmol/L (3.5-5.1)
[2018-07-03] MEDS ORDERED: SODIUM CHLORIDE 0.9% 50ML 50 ML ONE (00:58)
[2018-07-03] MEDS ORDERED: IOPAMIDOL 370 MG/ML 200 ML INFUS..BTL INJ ONE (00:58)
[2018-07-03 01:13] LABS: CLARITY,URINE CLOUDY (CLEAR); COLOR,URINE YELLOW (YELLOW)
[2018-07-03 01:14] LABS: BACTERIA,URINE MANY /HPF; BILIRUBIN,URINE NEGATIVE (NEGATIVE); KETONES,URINE NEGATIVE (NEGATIVE); LEUKOCYTE ESTERASE ,URINE TRACE (NEGATIVE); NITRITE,URINE POSITIVE (NEGATIVE); PROTEIN,URINE DIPSTICK NEGATIVE (NEGATIVE); URINE UROBILINOGEN 0.2 mg/dL (0.2 - 1)
[2018-07-03 01:15] LABS: EPITHELIAL CELLS,URINE FEW /LPF; WBC,URINE (MAN) 21-50 /HPF (0-5)
--- NOTE | 2018-07-03 01:50 | Diagnostic Imaging Report ---
EXAM: CT Abdomen and Pelvis WITH contrast INDICATION: abdominal pain COMPARISON: None. TECHNIQUE: Abdomen and pelvis were scanned utilizing a multidetector helical scanner from the lung base to the pubic symphysis after administration of IV contrast. Coronal and sagittal reformations were obtained. Routine protocol was performed. Scan was performed when during portal venous phase. IV CONTRAST: 100 mL of Isovue 370 ORAL CONTRAST: Gastrografin COMPLICATIONS: None RADIATION DOSE: Total DLP: 794.7 mGy*cm Estimated effective dose: (DLP x 0.015 x size factor) mSv Dose modulation, iterative reconstruction, and/or weight based adjustment of the mA/kV was utilized to reduce the radiation dose to as low as reasonably achievable. FINDINGS: LINES and TUBES: None. LOWER THORAX: Medial basilar right lower lobe 0.5 cm pulmonary nodule. Small left Bochdalek hernia. HEPATOBILIARY: No focal hepatic lesions. No biliary ductal dilation. GALLBLADDER: Cholecystectomy. SPLEEN: No splenomegaly. PANCREAS: Atrophic. No focal masses or ductal dilatation. ADRENALS: No adrenal nodules KIDNEYS/URETERS: Kidneys enhance symmetrically. No hydronephrosis. No solid mass lesions. Subcentimeter hypodensity in the right interpolar kidney is too small to characterize but statistically likely a cyst. No stones. GI TRACT: No abnormal distention, wall thickening, or evidence of bowel obstruction. Appendix is normal. PELVIC ORGANS/BLADDER: Unremarkable. LYMPH NODES: No lymphadenopathy. VESSELS: There is mild atherosclerotic disease in the aorta and major arterial branches. PERITONEUM / RETROPERITONEUM: No free air or fluid. BONES: There are degenerative changes in the lumbar spine. SOFT TISSUES: Gluteal injection granulomas. IMPRESSION: 1. No acute abnormalities. 2. Right lower lobe 5 mm nodule. Recommend follow-up per Fleischner Society 2017 guidelines. Signed by: DR. Juan Alberto Herr MD on 07/03/2018 1:46 AM
[2018-07-03 03:19] VITALS: BP 115/67
[2018-07-03] MEDS ORDERED: MACROBID 100 M100 MG PO (03:21)
== END 2018-07-03 03:26 | disposition home or self-care (01) ==
LOC: ER 22:34
DX: R10.13 Epigastric pain (principal); R11.0 Nausea; N30.91 Cystitis, unspecified with hematuria
CPT/HCPCS: 36415; 74177; 80053; 81001; 85025; 99283; Q9967